=== PATIENT | female | born 1995 | race Caucasian/White ===

== ENCOUNTER 2017-03-21 09:06 | Inpatient (IN) | payer MEDICAID ==
[2017-03-21] MEDS ORDERED: Lactated Ringers 1,000 ML IV ONE (10:00)
[2017-03-21] MEDS ORDERED: Lactated Ringers 1,000 ML IV SCH ×3 (11:00→13:30)
[2017-03-21] MEDS ORDERED: ePHEDrine 50 MG/ML SDV IV ONE (11:30)
[2017-03-21] MEDS ORDERED: fentaNYL 100 MCG/2 ML SDV EPIDUR ONE (11:30)
[2017-03-21] MEDS ORDERED: fentaNYL 300 MCG in Ropivacaine 200 ML EPIDUR ONE (11:30)
--- NOTE | 2017-03-21 12:29 | PCM.SN ---
- Free Text/Narrative Note: Subjective-this is a 21-year-old with one living with a due date of here in active labor. She was seen here yesterday and she was 3 cm sent to [facility] where she is being followed. They sent her home and told her to come back. She decided she wanted to deliver at [place]. She is here in active labor. Objective- heart tones reactive. As a stable afebrile Abdomen gravid. Cervix 6/90/-1 Group B-negative HIV negative Hepatitis C antibody normal Hepatitis E surface antigen normal Rubella screen normal Assessment-multipara in active labor. Plan-artificial rupture membranes with meconium-stained fluid. Epidural, vaginal delivery.
[2017-03-21] MEDS ORDERED: Ketorolac 15 MG/ML SDV IVPUSH PRN (13:31)
[2017-03-21] MEDS ORDERED: diphenhydrAMINE 50 MG/ML SDV IV PRN (13:37)
[2017-03-21] MEDS ORDERED: Naloxone 0.4 MG/ML SDV IVPUSH PRN (13:43)
[2017-03-21] MEDS ORDERED: ePHEDrine 50 MG/ML SDV IVPUSH PRN (13:43)
[2017-03-21] MEDS ORDERED: Naloxone 0.4 MG in Sodium Chloride 0.9% 100 ML IV PRN (13:43)
[2017-03-21] MEDS ORDERED: Promethazine 25 MG/ML SDV IV PRN (13:43)
[2017-03-21] MEDS ORDERED: Ondansetron 4 MG/2 ML SDV IVPUSH PRN (13:44)
[2017-03-21] MEDS ORDERED: Oxytocin 10 Units/1 ML SDV IM ONE (16:30)
--- NOTE | 2017-03-21 17:10 | PCM.DEL ---
L & D Note - General Info Date of Service: 03/21/17 - Delivery Note Labor: Spontaneous Delivery Outcome: Livebirth Delivery Method: Spontaneous Vaginal Delivery-Single Presentation: Left Occiput Anterior (BINA) Nuchal Cord: Present Prep: Povidone-Iodine (Betadine Anesthesia Type: Epidural Amniotic Fluid Description: Meconium Stained Episiotomy Type: None Laceration: None Placenta: Intact, Spontaneous Cord: 3 Vessels Resuscitation Needed: Yes [place]: Suctioned, Bulb Syringe, Stimulated, Warmed - General Info Date of Service: 03/21/17 - Patient Data Weight - Most Recent: 181 lb Lab Results Last 24 Hours: Laboratory Results - last 24 hr 03/21/17 Range/Units 12:57 WBC 14.1 H (4.5-12.0) X10-3/uL RBC 4.50 (3.23-5.20) x10(6)uL Hgb 11.5 (11.5-15.5) g/dL Hct 34.4 (30.0-51.3) % MCV 76.6 L (80-96) fL MCH 25.5 L (27.7-33.6) pg MCHC 33.3 (32.2-35.4) g/dL RDW 14.2 (11.5-15.5) % Plt Count 216 (125-369) X10(3)uL MPV 7.7 (7.4-10.4) fL Add Manual Diff Yes Neutrophils % (Manual) 87 H (46-82) % Band Neutrophils % 1 (0-6) % Lymphocytes % (Manual) 7 L (13-37) % Monocytes % (Manual) 5 (4-12) % Hypersegmented Neuts Moderate Microcytosis Few Med Orders - Current: Current Medications Acetaminophen/Codeine Phosphate (Tylenol With Codeine No.3 300mg/30mg) 1 tab PO Q4H PRN PRN Reason: Pain (moderate 4-6) Diphenhydramine HCl (Benadryl) 25 mg IV ASDIRECTED PRN PRN Reason: PRURITIS Ephedrine Sulfate (Ephedrine Sulfate) 5 mg IVPUSH ASDIRECTED PRN PRN Reason: HYPOTENSION Naloxone HCl 0.4 mg/ Sodium (Chloride) 101 mls @ 25 mls/hr IV ASDIRECTED PRN PRN Reason: PER ORDER OF ANESTHESIA Ibuprofen (Motrin) 800 mg PO Q6H PRN PRN Reason: Pain Naloxone HCl (Narcan) 0.1 mg IVPUSH ASDIRECTED PRN PRN Reason: RESPIRATORY STATUS Ondansetron HCl (Zofran) 4 mg IVPUSH Q6H PRN PRN Reason: NAUSEA/VOMITING Multivit/Folic Acid/Iron (-U) 1 each PO DAILY [facility] Promethazine HCl (Phenergan) 6.25 - 12.5 mg IV Q4H PRN PRN Reason: NAUSEA AND VOMITING Discontinued Medications Lactated Ringer's (Ringers, Lactated) 1,000 mls @ 999 mls/hr IV ASDIRECTED [facility] Lactated Ringer's (Ringers, Lactated) 1,000 mls @ 125 mls/hr IV ASDIRECTED [facility] - Problem List & Annotations (1) Vaginal delivery SNOMED Code(s): 993290402 Code(s): O80 - ENCOUNTER FOR FULL-TERM UNCOMPLICATED DELIVERY Status: Acute Current Visit: Yes - Problem List Review Problem List Initiated/Reviewed/Updated: Yes - My Orders Last 24 Hours: My Active Orders 03/21/17 17:05 Patient Status [ADT] Routine Up ad Ashley [RC] ASDIRECTED Vital Signs [RC] PFP Acetaminophen/Codeine [Tylenol with Codeine No.3 300MG/30MG] 1 tab PO Q4H PRN Ibuprofen [Motrin] 800 mg PO Q6H PRN Assess Lochia [WOMSER] Per Unit Routine Assess Uterine Involution [WOMSER] Per Unit Routine Breast Pump [WOMSER] Per Unit Routine Resuscitation Status Routine 03/21/17 17:06 Ice Therapy [OM.PC] Per Unit Routine Perineal Care [OM.PC] Per Unit Routine Peripheral IV Discontinue [OM.PC] Routine Sitz Bath [OM.PC] Per Unit Routine 03/22/17 05:11 HEMOGLOBIN/HEMATOCRIT,HH [HEME] AM 03/22/17 09:00 Vit/FA/Fe Fumarate [-U] 1 each PO DAILY - Plan Plan:: 1. Normal orders.
[2017-03-21] MEDS: Ibuprofen 800 MG Tab PO PRN (19:40)
[2017-03-21] MEDS: Acetaminophen/Codeine 300-30 MG Tab PO PRN (21:46)
[2017-03-22] MEDS: Acetaminophen/Codeine 300-30 MG Tab PO PRN ×2 (02:42→21:59)
--- NOTE | 2017-03-22 07:57 | PCM.PNPP ---
- General Info Date of Service: 03/22/17 Admission Dx/Problem (Free Text): Patient states she had some pain in her epidural spot. Vaginal bleeding is slowing. She has no other concerns today. - Patient Data Vital Signs - Most Recent: Last Vital Signs Temp 98.3 F 03/21/17 18:00 Pulse 92 03/22/17 00:45 Resp 16 03/22/17 00:45 BP 135/88 03/22/17 00:45 Pulse Ox 95 03/22/17 00:45 Weight - Most Recent: 181 lb Lab Results - Last 24 Hours: Laboratory Results - last 24 hr 03/21/17 03/22/17 Range/Units 12:57 06:15 WBC 14.1 H (4.5-12.0) X10-3/uL RBC 4.50 (3.23-5.20) x10(6)uL Hgb 11.5 10.0 L (11.5-15.5) g/dL Hct 34.4 29.0 L (30.0-51.3) % MCV 76.6 L (80-96) fL MCH 25.5 L (27.7-33.6) pg MCHC 33.3 (32.2-35.4) g/dL RDW 14.2 (11.5-15.5) % Plt Count 216 (125-369) X10(3)uL MPV 7.7 (7.4-10.4) fL Add Manual Diff Yes Neutrophils % (Manual) 87 H (46-82) % Band Neutrophils % 1 (0-6) % Lymphocytes % (Manual) 7 L (13-37) % Monocytes % (Manual) 5 (4-12) % Hypersegmented Neuts Moderate Microcytosis Few Med Orders - Current: Current Medications Acetaminophen/Codeine Phosphate (Tylenol With Codeine No.3 300mg/30mg) 1 tab PO Q4H PRN PRN Reason: Pain (moderate 4-6) Last Admin: 03/22/17 02:42 Dose: 1 tab Diphenhydramine HCl (Benadryl) 25 mg IV ASDIRECTED PRN PRN Reason: PRURITIS Ephedrine Sulfate (Ephedrine Sulfate) 5 mg IVPUSH ASDIRECTED PRN PRN Reason: HYPOTENSION Escitalopram Oxalate (Lexapro) 20 mg PO DAILY [facility] Naloxone HCl 0.4 mg/ Sodium (Chloride) 101 mls @ 25 mls/hr IV ASDIRECTED PRN PRN Reason: PER ORDER OF ANESTHESIA Lactated Ringer's (Ringers, Lactated) 1,000 mls @ 250 mls/hr IV ASDIRECTED [facility] Ibuprofen (Motrin) 800 mg PO Q6H PRN PRN Reason: Pain Last Admin: 03/21/17 19:40 Dose: 800 mg Naloxone HCl (Narcan) 0.1 mg IVPUSH ASDIRECTED PRN PRN Reason: RESPIRATORY STATUS Ondansetron HCl (Zofran) 4 mg IVPUSH Q6H PRN PRN Reason: NAUSEA/VOMITING Multivit/Folic Acid/Iron (-U) 1 each PO DAILY [facility] Promethazine HCl (Phenergan) 6.25 - 12.5 mg IV Q4H PRN PRN Reason: NAUSEA AND VOMITING Discontinued Medications Lactated Ringer's (Ringers, Lactated) 1,000 mls @ 999 mls/hr IV ASDIRECTED [facility] Lactated Ringer's (Ringers, Lactated) 1,000 mls @ 125 mls/hr IV ASDIRECTED [facility] Lactated Ringer's (Ringers, Lactated) 1,000 mls @ 999 mls/hr IV BOLUS ONE Stop: 03/21/17 11:00 Oxytocin (Pitocin) 10 unit IM ONETIME ONE Stop: 03/21/17 16:31 Last Admin: 03/21/17 16:40 Dose: 10 unit - Interaction Infant Disposition, : in Room with Family Support Person: Other (see below) - Recovery Exam Fundal Tone: Firm Fundal Level: 1 Fingerbreadths Above Umbilicus Fundal Placement: Midline Lochia Amount: Small, Moderate Lochia Color: Rubra/Red Perineum Description: Intact, Minimal Bruising/Swelling Episiotomy/Laceration: None Bladder Status: Voiding Urinary Elimination: Voided - Exam General: Alert, Oriented, Cooperative Neck: Supple Lungs: Normal Respiratory Effort GI/Abdominal Exam: Other (Fundus is firm) - Problem List & Annotations (1) Vaginal delivery SNOMED Code(s): 947174489 Code(s): O80 - ENCOUNTER FOR FULL-TERM UNCOMPLICATED DELIVERY Status: Acute Current Visit: Yes - Problem List Review Problem List Initiated/Reviewed/Updated: Yes - My Orders Last 24 Hours: My Active Orders 03/21/17 11:00 Lactated Ringers [Ringers, Lactated] 1,000 ml IV ASDIRECTED 03/21/17 17:05 Patient Status [ADT] Routine Up ad Ashley [RC] ASDIRECTED Vital Signs [RC] PFP Acetaminophen/Codeine [Tylenol with Codeine No.3 300MG/30MG] 1 tab PO Q4H PRN Ibuprofen [Motrin] 800 mg PO Q6H PRN Assess Lochia [WOMSER] Per Unit Routine Assess Uterine Involution [WOMSER] Per Unit Routine Breast Pump [WOMSER] Per Unit Routine Resuscitation Status Routine 03/21/17 17:06 Ice Therapy [OM.PC] Per Unit Routine Perineal Care [OM.PC] Per Unit Routine Peripheral IV Discontinue [OM.PC] Routine Sitz Bath [OM.PC] Per Unit Routine 03/22/17 09:00 Escitalopram [Lexapro] 20 mg PO DAILY Vit/FA/Fe Fumarate [-U] 1 each PO DAILY - Plan Plan:: 1. Continue current care
[2017-03-22] MEDS: Prenatal Multivitamin with Calcium/Folic Acid/Fe Fumarate Cap PO SCH (08:05)
[2017-03-22] MEDS: Escitalopram 20 MG Tab PO SCH (08:05)
[2017-03-22] MEDS: Ibuprofen 800 MG Tab PO PRN ×2 (08:06→18:29)
[2017-03-22] MEDS ORDERED: Ondansetron 4 MG Tab.DIS PO PRN (12:40)
--- NOTE | 2017-03-23 07:14 | PCM.PNPP ---
- General Info Date of Service: 03/23/17 Admission Dx/Problem (Free Text): Patient without complaints. Pain is under control and she is using some Tylenol No. 3. Bleedings getting less and less. - Patient Data Vital Signs - Most Recent: Last Vital Signs Temp 98.3 F 03/23/17 02:30 Pulse 72 03/23/17 02:30 Resp 18 03/23/17 02:30 BP 112/72 03/23/17 02:30 Pulse Ox 98 03/23/17 02:30 Weight - Most Recent: 181 lb Med Orders - Current: Current Medications Acetaminophen/Codeine Phosphate (Tylenol With Codeine No.3 300mg/30mg) 1 tab PO Q4H PRN PRN Reason: Pain (moderate 4-6) Last Admin: 03/22/17 21:59 Dose: 1 tab Escitalopram Oxalate (Lexapro) 20 mg PO DAILY [facility] Last Admin: 03/22/17 08:05 Dose: 20 mg Lactated Ringer's (Ringers, Lactated) 1,000 mls @ 250 mls/hr IV ASDIRECTED [facility] Last Admin: 03/21/17 11:05 Dose: 250 mls/hr Ibuprofen (Motrin) 800 mg PO Q6H PRN PRN Reason: Pain Last Admin: 03/22/17 18:29 Dose: 800 mg Ondansetron HCl (Zofran Odt) 4 mg PO Q6H PRN PRN Reason: Nausea/Vomiting Multivit/Folic Acid/Iron (-U) 1 each PO DAILY [facility] Last Admin: 03/22/17 08:05 Dose: 1 each Discontinued Medications Diphenhydramine HCl (Benadryl) 25 mg IV ASDIRECTED PRN PRN Reason: PRURITIS Ephedrine Sulfate (Ephedrine Sulfate) 5 mg IVPUSH ASDIRECTED PRN PRN Reason: HYPOTENSION Lactated Ringer's (Ringers, Lactated) 1,000 mls @ 999 mls/hr IV ASDIRECTED [facility] Lactated Ringer's (Ringers, Lactated) 1,000 mls @ 125 mls/hr IV ASDIRECTED [facility] Naloxone HCl 0.4 mg/ Sodium (Chloride) 101 mls @ 25 mls/hr IV ASDIRECTED PRN PRN Reason: PER ORDER OF ANESTHESIA Lactated Ringer's (Ringers, Lactated) 1,000 mls @ 999 mls/hr IV BOLUS ONE Stop: 03/21/17 11:00 Last Admin: 03/21/17 10:00 Dose: 999 mls/hr Naloxone HCl (Narcan) 0.1 mg IVPUSH ASDIRECTED PRN PRN Reason: RESPIRATORY STATUS Ondansetron HCl (Zofran) 4 mg IVPUSH Q6H PRN PRN Reason: NAUSEA/VOMITING Oxytocin (Pitocin) 10 unit IM ONETIME ONE Stop: 03/21/17 16:31 Last Admin: 03/21/17 16:40 Dose: 10 unit Promethazine HCl (Phenergan) 6.25 - 12.5 mg IV Q4H PRN PRN Reason: NAUSEA AND VOMITING - Interaction Infant Disposition, : [place] in Room with Family Support Person: Other (see below) - Recovery Exam Fundal Tone: Firm Fundal Level: At Umbilicus Fundal Placement: Midline Lochia Amount: Small Lochia Color: Rubra/Red Perineum Description: Intact, Minimal Bruising/Swelling Episiotomy/Laceration: None Bladder Status: Voiding Urinary Elimination: Voided - Exam General: Alert, Oriented, Cooperative Lungs: Normal Respiratory Effort GI/Abdominal Exam: Other (Fundus firm) Extremities: No Pedal Edema - Problem List & Annotations (1) Vaginal delivery SNOMED Code(s): 973445123 Code(s): O80 - ENCOUNTER FOR FULL-TERM UNCOMPLICATED DELIVERY Status: Acute Current Visit: Yes - Problem List Review Problem List Initiated/Reviewed/Updated: Yes - My Orders Last 24 Hours: My Active Orders 03/22/17 09:00 Escitalopram [Lexapro] 20 mg PO DAILY Vit/FA/Fe Fumarate [-U] 1 each PO DAILY 03/22/17 12:40 Ondansetron [Zofran ODT] 4 mg PO Q6H PRN 03/23/17 Breakfast Regular Diet [DIET] - Plan Plan:: 1. Discharge to home
--- NOTE | 2017-03-23 07:21 | PCM.DCSUM1 ---
Discharge Summary - Hospital Course Free Text/Narrative:: Hospital course-patient delivered a healthy baby girl. day # 1 vital signs are stable afebrile hemoglobin was 10.0. She'll nausea was treated with Zofran and she improved. Eating and drinking fine. day # 2 no concerns. Discharged home. Brief History: 21-year-old group B negative comes in in labor 40+ weeks. - Discharge Data Discharge Date: 03/23/17 Discharge Disposition: Home, Self-Care 01 Condition: Good - Discharge Diagnosis/Problem(s) (1) Vaginal delivery SNOMED Code(s): 020838307 ICD Code: O80 - ENCOUNTER FOR FULL-TERM UNCOMPLICATED DELIVERY Status: Acute Current Visit: Yes - Patient Instructions Diet: Regular Diet as Tolerated Activity: As Tolerated Driving: May Drive Today Showering/Bathing: May Shower Notify Provider of: Fever, Increased Pain, Swelling and Redness, Drainage, Nausea and/or Vomiting Other/Special Instructions: 1. Recheck in [address] check with Dr[address] Collins - Discharge Plan Prescriptions/Med Rec: Acetaminophen/Codeine [Tylenol with Codeine No.3 300MG/30MG] 1 tab PO Q4H PRN # 10 tablet PRN Reason: Pain Home Medications: Home Meds Escitalopram [Lexapro] 20 mg PO DAILY 03/20/17 [History] Acetaminophen/Codeine [Tylenol with Codeine No.3 300MG/30MG] 1 tab PO Q4H PRN # 10 tablet 03/23/17 [Rx] Patient Handouts: Depression and Baby Blues, Hand Washing, Easy-to- Read, Home Care Instructions for Mom, Vaginal Delivery, Care After, Care After Vaginal Delivery - Discharge Summary/Plan Comment DC Time >30 min.: No Discharge Summary/Plan Comment: Recheck for check with Dr. Collins in 6 weeks. - Patient Data Vitals - Most Recent: Last Vital Signs Temp 98.3 F 03/23/17 02:30 Pulse 72 03/23/17 02:30 Resp 18 03/23/17 02:30 BP 112/72 03/23/17 02:30 Pulse Ox 98 03/23/17 02:30 Weight - Most Recent: 181 lb Med Orders - Current: Current Medications Acetaminophen/Codeine Phosphate (Tylenol With Codeine No.3 300mg/30mg) 1 tab PO Q4H PRN PRN Reason: Pain (moderate 4-6) Last Admin: 03/22/17 21:59 Dose: 1 tab Escitalopram Oxalate (Lexapro) 20 mg PO DAILY [facility] Last Admin: 03/22/17 08:05 Dose: 20 mg Lactated Ringer's (Ringers, Lactated) 1,000 mls @ 250 mls/hr IV ASDIRECTED [facility] Last Admin: 03/21/17 11:05 Dose: 250 mls/hr Ibuprofen (Motrin) 800 mg PO Q6H PRN PRN Reason: Pain Last Admin: 03/22/17 18:29 Dose: 800 mg Ondansetron HCl (Zofran Odt) 4 mg PO Q6H PRN PRN Reason: Nausea/Vomiting Multivit/Folic Acid/Iron (-U) 1 each PO DAILY [facility] Last Admin: 03/22/17 08:05 Dose: 1 each Discontinued Medications Diphenhydramine HCl (Benadryl) 25 mg IV ASDIRECTED PRN PRN Reason: PRURITIS Ephedrine Sulfate (Ephedrine Sulfate) 5 mg IVPUSH ASDIRECTED PRN PRN Reason: HYPOTENSION Lactated Ringer's (Ringers, Lactated) 1,000 mls @ 999 mls/hr IV ASDIRECTED [facility] Lactated Ringer's (Ringers, Lactated) 1,000 mls @ 125 mls/hr IV ASDIRECTED [facility] Naloxone HCl 0.4 mg/ Sodium (Chloride) 101 mls @ 25 mls/hr IV ASDIRECTED PRN PRN Reason: PER ORDER OF ANESTHESIA Lactated Ringer's (Ringers, Lactated) 1,000 mls @ 999 mls/hr IV BOLUS ONE Stop: 03/21/17 11:00 Last Admin: 03/21/17 10:00 Dose: 999 mls/hr Naloxone HCl (Narcan) 0.1 mg IVPUSH ASDIRECTED PRN PRN Reason: RESPIRATORY STATUS Ondansetron HCl (Zofran) 4 mg IVPUSH Q6H PRN PRN Reason: NAUSEA/VOMITING Oxytocin (Pitocin) 10 unit IM ONETIME ONE Stop: 03/21/17 16:31 Last Admin: 03/21/17 16:40 Dose: 10 unit Promethazine HCl (Phenergan) 6.25 - 12.5 mg IV Q4H PRN PRN Reason: NAUSEA AND VOMITING *Q Meaningful Use (DIS) - VTE *Q VTE Criteria *Q: - Stroke *Q Stroke Criteria *Q: - AMI *Q AMI Criteria *Q:
[2017-03-23] MEDS: Escitalopram 20 MG Tab PO SCH (08:47)
[2017-03-23] MEDS: Prenatal Multivitamin with Calcium/Folic Acid/Fe Fumarate Cap PO SCH (08:47)
[2017-03-23] MEDS: Ibuprofen 800 MG Tab PO PRN (08:47)
[2017-03-23 09:17] VITALS: BP 130/87
== END 2017-03-23 09:40 | disposition home or self-care (01) | DRG 775 ==
LOC: FB.OBCHECK 09:06 → FB.OB 09:07 → FB.OBCHECK 12:20 → FB.OB 13:54
PROVIDERS: ADMIT Family Medicine; ATTEND Family Medicine
PROC: 10E0XZZ Delivery of Products of Conception, External Approach (ICD-10-PCS; principal; 2017-03-21)
PROC: 10907ZC Drainage of Amniotic Fluid, Therapeutic from Products of Conception, Via Natural or Artificial Opening (ICD-10-PCS; 2017-03-21)
PROC: 00HU33Z Insertion of Infusion Device into Spinal Canal, Percutaneous Approach (ICD-10-PCS; 2017-03-21)
DX: O77.0 Labor and delivery complicated by meconium in amniotic fluid (principal); Z3A.40 40 weeks gestation of pregnancy; Z37.0 Single live birth
CPT/HCPCS: 36415; 59409; 85014; 85018; 85025; 99211; A9270-GY; J2590; J2795; J3010; J7120

== ENCOUNTER 2017-07-15 17:16 | Emergency (ER) | payer MEDICAID ==
[2017-07-15 18:14] VITALS: BP 137/94
--- NOTE | 2017-07-15 18:22 | EDM.PDOC ---
ED HPI GENERAL MEDICAL PROBLEM - General Chief Complaint: ENT Problem Stated Complaint: DIZZINESS, EARACHE Time Seen by Provider: 07/15/17 17:16 Source of Information: Reports: Patient, Family History Limitations: Reports: No Limitations - History of Present Illness INITIAL COMMENTS - FREE TEXT/NARRATIVE: 22 y.o.w.f with left ear discomfort No other acute medical issues. BP 134/78 Onset Date: 07/15/17 Onset Time: 16:00 Duration: Hour(s):, Intermittent Location: Reports: Face Quality: Reports: Ache Severity: Mild Improves with: Reports: None Worsens with: Reports: None Left Ear Pain Score (Numeric/FACES): 5 - Related Data Allergies Allergy/AdvReac Type Severity Reaction Status Date / Time No Known Allergies Allergy Verified 07/15/17 18:09 Home Meds: Home Meds Escitalopram [Lexapro] 20 mg PO DAILY 03/20/17 [History] Past Medical History HEENT History: Reports: Impaired Vision Cardiovascular History: Reports: None Respiratory History: Reports: None Genitourinary History: Reports: None [employer] History: Reports: Musculoskeletal History: Reports: None Neurological History: Reports: None Psychiatric History: Reports: Anxiety, Depression Endocrine/Metabolic History: Reports: None Hematologic History: Reports: None Immunologic History: Reports: None Oncologic (Cancer) History: Reports: None Dermatologic History: Reports: None - Infectious Disease History Infectious Disease History: Reports: None - Past Surgical History Head Surgeries/Procedures: Reports: None GI Surgical History: Reports: Colonoscopy Oncologic Surgical History: Reports: None Social & Family History - Family History Family Medical History: Unobtainable Psychiatric: Reports: Anxiety, Bipolar, Depression - Tobacco Use Smoking Status *Q: Never Smoker Used Tobacco, but Quit: No Second Hand Smoke Exposure: No - Caffeine Use Caffeine Use: Reports: None - Recreational Drug Use Recreational Drug Use: No ED ROS ENT - Review of Systems Review Of Systems: See Below Constitutional: Reports: No Symptoms HEENT: Reports: Ear Pain Respiratory: Reports: No Symptoms Cardiovascular: Reports: No Symptoms Endocrine: Reports: No Symptoms GI/Abdominal: Reports: No Symptoms : Reports: No Symptoms Musculoskeletal: Reports: No Symptoms Skin: Reports: No Symptoms Neurological: Reports: No Symptoms Psychiatric: Reports: No Symptoms Hematologic/Lymphatic: Reports: No Symptoms Immunologic: Reports: No Symptoms ED EXAM, ENT - Physical Exam Exam: See Below Exam Limited By: No Limitations General Appearance: Alert, WD/WN, No Apparent Distress Eye Exam: Bilateral Eye: Normal Inspection Ears: Canal Material, Canal Swelling Nose: Normal Inspection, Normal Mucousa, No Blood Mouth/Throat: Normal Inspection, Normal Gums, Normal Lips, Normal Oropharynx Head: Atraumatic, Normocephalic Neck: Normal Inspection, Supple, Non-Tender, Full Range of Motion Respiratory/Chest: No Respiratory Distress, Lungs Clear, Normal Breath Sounds Cardiovascular: Normal Peripheral Pulses, Regular Rate, Rhythm, No Edema, No Gallop GI/Abdominal: Normal Bowel Sounds, Soft, Non-Tender, No Organomegaly, No Abnormal Bruit, No Mass, Pelvis Stable (Female) Exam: Deferred Rectal (Female) Exam: Deferred Back: Normal Inspection, Full Range of Motion Extremities: Normal Inspection, Normal Range of Motion, Non-Tender, Normal Capillary Refill Neurological: Alert, Oriented, CN II-XII Intact, Normal Cognition Psychiatric: Normal Affect, Normal Mood Skin: Warm, Dry, Normal Color, Rash (left external ear) Lymphatic: No Adenopathy Course - Vital Signs Text/Narrative:: 22 y.o.w.f with left ear discomfort No other acute medical issues. BP 134/78 PE: WNWN W F with OE left ear Impression: Otitis externa left ear with ear wax [place]: D/C with instructions Last Recorded V/S: Last Vital Signs Temp 36.6 C 07/15/17 18:10 Pulse 93 07/15/17 18:10 Resp 16 07/15/17 18:10 BP 137/94 H 07/15/17 18:10 Pulse Ox 98 07/15/17 18:10 Departure - Departure Time of Disposition: 18:10 Disposition: Home, Self-Care 01 Condition: Good Clinical Impression: Ear ache Otitis externa Qualifiers: Otitis externa type: unspecified type Chronicity: unspecified Laterality: left Qualified Code(s): H60.92 - Unspecified otitis externa, left ear - Discharge Information Referrals: Matias Collins MD [Primary Care Provider] - Forms: ED Department Discharge Additional Instructions: Please follow up, take the meds -Cortisporine ear drops as recommended, tylenol for pain, come back if your symptoms get worse acutely
[2017-07-15] MEDS ORDERED: Hydrocortisone/Neomycin/Polymyxin B Otic Susp 10 ML Bottle ONE (18:45)
== END 2017-07-15 18:30 | disposition home or self-care (01) ==
LOC: FB.ED 17:16
DX: H60.92 Unspecified otitis externa, left ear (principal); F32.9 Major depressive disorder, single episode, unspecified; Z79.899 Other long term (current) drug therapy
CPT/HCPCS: 99282; A9270-GY

== ENCOUNTER 2018-02-03 22:35 | Emergency (ER) | payer MEDICAID ==
--- NOTE | 2018-02-03 23:28 | EDM.PDOC ---
ED HPI GENERAL MEDICAL PROBLEM - General Chief Complaint: ENT Problem Stated Complaint: SORE THROAT Time Seen by Provider: 02/03/18 22:35 Source of Information: Reports: Patient History Limitations: Reports: No Limitations - History of Present Illness INITIAL COMMENTS - FREE TEXT/NARRATIVE: 22 y,o,w,f came to the ed due to sore throat and right ear pain. No other acute medical issues, no N/V/D, BP 136/102 Temp 36.9 RR 18 Pulse ox 100% on RA Pulse 82 Onset Date: 02/01/18 Onset Time: 07:00 Duration: Day(s):, Getting Worse, Intermittent Location: Reports: Face Quality: Reports: Ache, Burning, Dull Severity: Mild Improves with: Reports: Rest Worsens with: Reports: Movement Associated Symptoms: Reports: No Other Symptoms - Related Data Allergies Allergy/AdvReac Type Severity Reaction Status Date / Time No Known Allergies Allergy Verified 02/03/18 22:56 Home Meds: Home Meds Escitalopram [Lexapro] 20 mg PO DAILY 03/20/17 [History] Amoxicillin/Potassium Clav [Augmentin 875-125 Tablet] 1 each PO BID #20 tablet 02/03/18 [Rx] Hydrocort/Neomycin/Polymyxin B [Cortisporin Otic Soln] 3 drop EARRT Q8HR 8 Days #1 bottle 02/03/18 [Rx] Past Medical History HEENT History: Reports: Impaired Vision Cardiovascular History: Reports: None Respiratory History: Reports: None Genitourinary History: Reports: None [employer] History: Reports: Musculoskeletal History: Reports: None Neurological History: Reports: None Psychiatric History: Reports: Anxiety, Depression Endocrine/Metabolic History: Reports: None Hematologic History: Reports: None Immunologic History: Reports: None Oncologic (Cancer) History: Reports: None Dermatologic History: Reports: None - Infectious Disease History Infectious Disease History: Reports: None - Past Surgical History Head Surgeries/Procedures: Reports: None GI Surgical History: Reports: Colonoscopy Oncologic Surgical History: Reports: None Social & Family History - Family History Family Medical History: Unobtainable Psychiatric: Reports: Anxiety, Bipolar, Depression - Tobacco Use Smoking Status *Q: Former Smoker Years of Tobacco use: 10 Used Tobacco, but Quit: No - Caffeine Use Caffeine Use: Reports: None ED ROS ENT - Review of Systems Review Of Systems: See Below Constitutional: Reports: No Symptoms HEENT: Reports: Ear Pain, Throat Pain Respiratory: Reports: No Symptoms Cardiovascular: Reports: No Symptoms Endocrine: Reports: No Symptoms GI/Abdominal: Reports: No Symptoms : Reports: No Symptoms Musculoskeletal: Reports: No Symptoms Skin: Reports: No Symptoms Neurological: Reports: No Symptoms Psychiatric: Reports: No Symptoms Hematologic/Lymphatic: Reports: No Symptoms Immunologic: Reports: No Symptoms ED EXAM, ENT - Physical Exam Exam: See Below Exam Limited By: No Limitations General Appearance: Alert, WD/WN, Mild Distress Eye Exam: Bilateral Eye: Normal Inspection Ears: Normal External Exam, TM Bulging, TM Dullness Nose: Normal Inspection, Normal Mucousa, No Blood Mouth/Throat: Normal Gums, Normal Lips, Normal Teeth, Throat Pain, Tonsillar Erythema Head: Atraumatic, Normocephalic Neck: Normal Inspection, Supple, Non-Tender, Full Range of Motion Respiratory/Chest: No Respiratory Distress, Lungs Clear, Normal Breath Sounds, No Accessory Muscle Use, Chest Non-Tender Cardiovascular: Normal Peripheral Pulses, Regular Rate, Rhythm, No Edema, No Gallop, No JVD, No Murmur, No Rub GI/Abdominal: Normal Bowel Sounds, Soft, Non-Tender, No Organomegaly, No Distention, No Abnormal Bruit, No Mass, Pelvis Stable (Female) Exam: Deferred Rectal (Female) Exam: Deferred Back: Normal Inspection, Full Range of Motion Extremities: Normal Inspection, Normal Range of Motion, Non-Tender, No Pedal Edema, Normal Capillary Refill Neurological: Alert, Oriented, CN II-XII Intact, Normal Cognition, Normal Gait, No Motor/Sensory Deficits Psychiatric: Normal Affect, Normal Mood Skin: Warm, Dry, Intact, Normal Color, No Rash Lymphatic: No Adenopathy Course - Vital Signs Text/Narrative:: 22 y,o,w,f came to the ed due to sore throat and right ear pain. No other acute medical issues, no N/V/D, BP 136/102 Temp 36.9 RR 18 Pulse ox 100% on RA Pulse 82 PE: WNWD W F with sore throat and right ear pain Labs: RST neg Cx pending Impression: OM/OE right ear, Pharyngitis, Strep throat presumed Tx: Cortisporin and Augmentin as a prescription Plan: D/C with instruction Last Recorded V/S: Last Vital Signs Temp 36.6 C 02/03/18 22:45 Pulse 76 02/03/18 23:40 Resp 18 02/03/18 23:40 BP 149/113 H 02/03/18 23:40 Pulse Ox 100 02/03/18 23:40 - Orders/Labs/Meds Meds: Medications Discontinued Medications Generic Name Dose Route Start Last Admin Trade Name Key PRN Reason Stop Dose Admin Amoxicillin/Clavulanate Potassium 1 tab 02/03/18 23:29 02/03/18 23:32 Augmentin 875 Mg/125 Mg PO 02/03/18 23:30 1 tab ONETIME ONE Administration Departure - Departure Time of Disposition: 23:29 Disposition: Home, Self-Care 01 Condition: Good Clinical Impression: Acute ear infection Qualifiers: Laterality: right Qualified Code(s): H66.91 - Otitis media, unspecified, right ear Pharyngitis Qualifiers: Pharyngitis/tonsillitis etiology: other specified organisms Qualified Code(s): J02.8 - Acute pharyngitis due to other specified organisms - Discharge Information *PRESCRIPTION DRUG MONITORING PROGRAM REVIEWED*: Yes *COPY OF PRESCRIPTION DRUG MONITORING REPORT IN PATIENT ADAN: Yes Prescriptions: Hydrocort/Neomycin/Polymyxin B [Cortisporin Otic Soln] 3 drop EARRT Q8HR 8 Days #1 bottle Amoxicillin/Potassium Clav [Augmentin 875-125 Tablet] 1 each PO BID #20 tablet Instructions: Otitis Media, Adult, [id number], Pharyngitis, [id number] Referrals: Matias Collins MD [Primary Care Provider] - Forms: ED Department Discharge Additional Instructions: Please take Motrin for pain, please take the meds as recommended, please f/u, come back if your symptoms get worse acutely
[2018-02-03] MEDS ORDERED: Amoxicillin/Clavulanate K 875-125 MG Tab PO ONE (23:29)
[2018-02-04 06:10] VITALS: BP 149/113
== END 2018-02-04 00:50 | disposition home or self-care (01) ==
LOC: FB.ED 22:35
DX: H66.91 Otitis media, unspecified, right ear (principal); J02.8 Acute pharyngitis due to other specified organisms; Z79.899 Other long term (current) drug therapy; Z87.891 Personal history of nicotine dependence
CPT/HCPCS: 87081; 87880; 99282; A9270